=== PATIENT | male | born 2000 | race Two or more races ===

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

== ENCOUNTER 2019-03-13 07:10 | Emergency (ER) | payer MEDICAID ==
[~2019-03-13] VITALS: Ht 180.3 cm; Wt 77.1 kg
[2019-03-13 08:04] VITALS: BP 110/71
[2019-03-13] MEDS ORDERED: KETOROLAC TROMETH 60MG/2ML VIAL IM ONE (09:00)
== END 2019-03-13 09:32 | disposition home or self-care (01) ==
LOC: ER 07:10
DX: G43.909 Migraine, unspecified, not intractable, without status migrainosus (principal)
CPT/HCPCS: 96372; 99283; J1885